=== PATIENT | female | born 1945 | race Caucasian/White ===

== ENCOUNTER 2019-05-15 23:54 | Inpatient (IN) | payer MEDICARE, BC ==
[~2019-05-15] VITALS: Ht 160 cm; Wt 104.3 kg
[2019-05-16] VITALS (10 sets, daily range): BP systolic 128–173; BP diastolic 71–93; Ht 160 cm; Wt 104.3 kg
--- NOTE | 2019-05-16 08:07 | NUR ---
PT ASSISTED TO BR. PT BEGAN VOMITTING DARK GREEN/YELLOW FLUID. PT BACK IN BED AND RESTING AT THIS TIME. CONSENTS FOR SX SIGNED. TM.
--- NOTE | 2019-05-16 08:14 | NUR ---
PT GIVEN PRN ZOFRAN AND MORPHINE AT THIS TIME.
[2019-05-16 08:23] LABS: ALBUMIN 3.4 g/dL (3.4-5.0); ALKALINE PHOSPHATASE 117 U/L (46-116); ALT (SGPT) 46 U/L (10-68); CALC OSMOLALITY 279 mosm/kg (275-300); CALCIUM 8.6 mg/dL (8.5-10.1); CARBON DIOXIDE 27.5 mmol/L (21.0-32.0); CHLORIDE - SERUM 102 mmol/L (98-107); CREATININE - SERUM 0.9 mg/dL (0.6-1.3); GLUCOSE 106 mg/dL (74-106); POTASSIUM - SERUM 3.4 mmol/L (3.5-5.1); PRO BNP 599 pg/mL (0-125); PROTEIN - SERUM 7.7 g/dL (6.4-8.2); SODIUM 140 mmol/L (136-145); THYROID STIMULATING HORMONE 0.89 uIU/mL (0.36-3.74); TROPONIN-I < 0.017 ng/mL (0.000-0.060); UREA NITROGEN 15 mg/dL (7-18); eGFR NON AFRICAN AMERICAN 65 mL/min (90-120)
[2019-05-16 08:54] LABS: BASOPHILS 0.1 % (0-2); EOSINOPHILS 0.1 % (0-7); HEMOGLOBIN 13.9 g/dL (12-16); IMMATURE GRANULOCYTES 0.2 % (0-5); LYMPHOCYTES 14.2 % (15-50); MCH 28.5 pg (26.0-34.0); MCHC 33.9 g/dL (31.0-37.0); MEAN PLATELET VOLUME 11.5 fL (7.4-10.4); MONOCYTES 5.3 % (2-11); NEUTROPHILS 80.1 % (40-80); PLATELET COUNT 261 10x3/uL (130-400); RBC 4.88 10x6/uL (4.00-5.40); RDW 13.5 % (11.5-14.5); WBC 8.7 10x3/uL (4.8-10.8)
--- NOTE | 2019-05-16 10:36 | NUR ---
PT PREOP MEDICATIONS GIVE.
--- NOTE | 2019-05-16 13:18 | NUR ---
PREPPED SHOULDER TO FINGERTIPS CIRCUMFERENTIALLY WITH HIBICLENS/ALCOHOL AND DRIED WITH TOWEL. THEN PREPPED WITH CHLORAPREP. STERILE GOWN AND GLOVES WORN DURING PREP. TRAFFIC IN AND OUT OF ROOM MONITORED AND KEPT TO A MINIMUM.
--- NOTE | 2019-05-16 16:27 | NUR ---
PT RETURNED FROM SX. POST OP VSS. PT SLEEPING. AROUSES TO VOICE. SON AT BEDSIDE. WCTM.
--- NOTE | 2019-05-16 19:30 | NUR ---
PATIENT RESTING IN BED WITH GUEST AT BEDSIDE AND NO S/S OF DISTRESS. PATIENT DENIES NEEDS AT THIS TIME. OFFERED TO ASSIST PATIENT TO THE RESTROOM AND SHE DECLINED AT THIS TIME. REMINDED THE PATIENT NOT TO TRY AND GO TO THE RESTROOM WITHOUT ASSISTANCE, PATIENT VERBALIZED UNDERSTANDING. BED IN LOWEST POSITION AND CALL LIGHT WITHIN REACH. ENCOURAGED THE PATIENT TO CALL IF SHE HAS NEEDS. WILL CONTINUE TO MONITOR.
--- NOTE | 2019-05-16 21:30 | NUR ---
PATIENT SITTING UP IN BED EATING HER DINNER. PATIENT DENIES NEEDS AT THIS TIME. WILL CONTINUE TO MONITOR.
--- NOTE | 2019-05-16 22:07 | NUR ---
ADMINISTERED MEDS PER ORDERS. PLACED PLEXI PULSE BOOTS ON PATIENT WITH NON SLIP SOCKS UNTIL I CAN OBTAIN LARGE SCD'S. GAVE PATIENT INCENTIVE SPIROMETER AND INSTRUCTED ON USE. PATIENT VERBALIZED UNDERSTANDING AND RETURNED DEMONSTRATION. APPLIED FRESH ICE PACK TO PATIENT'S RIGHT SHOULDER. PATIENT DENIES OTHER NEEDS AT THIS TIME. WILL CONTINUE TO MONITOR.
--- NOTE | 2019-05-17 00:10 | NUR ---
TOBACCO GROWER ASSISTED PATIENT TO RESTROOM, PATIENT VOIDED. TOBACCO GROWER ALSO CHANGED PATIENT'S LINENS AFTER PATIENT HAD INCONTINENT EPISODE.
[2019-05-17 01:39] VITALS: BP 119/69
--- NOTE | 2019-05-17 02:52 | NUR ---
ASSISTED PATIENT TO AND FROM RESTROOM WITH THE HOME HEALTH CLINICIAN. PATIENT VOIDED FOR THE THIRD TIME POSTOP. PATIENT C/O 10/10 PAIN. ADMINISTERED NORCO PER ORDERS. ALSO APPLIED FRESH ICE PACK.
[2019-05-17 05:30] VITALS: BP 127/70
[2019-05-17 06:54] LABS: HEMATOCRIT 36.9 % (36.0-48.0); HEMOGLOBIN 12.1 g/dL (12-16); MCHC 32.8 g/dL (31.0-37.0); MCV 85.4 fL (80.0-100.0); MEAN PLATELET VOLUME 11.7 fL (7.4-10.4); RBC 4.32 10x6/uL (4.00-5.40); RDW 14.1 % (11.5-14.5); WBC 9.6 10x3/uL (4.8-10.8)
--- NOTE | 2019-05-17 07:54 | NUR ---
ASSESSMENT COMPLETE, DR FUNK HAS ROUNDED AND DISCHARGE ORDERS OBTAINED. PT IN GOOD SPIRITS UP EATING BREAKFAST. IVF DC'D. DENIES ANYOTHER NEEDS AT THIS TIME,
[2019-05-17 08:00] VITALS: BP 140/74
--- NOTE | 2019-05-17 09:34 | NUR ---
IV TO LEFT HAND REMOVED TIP INTACT WELL IV TO LEFT CHEST WALL. PT GALO WELL.
[2019-05-17 10:17] LABS: ALBUMIN 2.9 g/dL (3.4-5.0); ANION GAP 13.4 mmol/L (8-16); BILIRUBIN - TOTAL 0.43 mg/dL (0.2-1.3); CALCIUM 7.4 mg/dL (8.5-10.1); CARBON DIOXIDE 25.9 mmol/L (21.0-32.0); POTASSIUM - SERUM 3.3 mmol/L (3.5-5.1); PROTEIN - SERUM 6.4 g/dL (6.4-8.2)
[2019-05-17 10:19] LABS: CREATININE - SERUM 1.4 mg/dL (0.6-1.3)
[2019-05-17 12:03] VITALS: BP 129/83
--- NOTE | 2019-05-17 13:00 | MORECARE ---
CASE MANAGEMENT DISCHARGE SUMMARY PATIENT: TRACY GARCIA UNIT: [id number] ADM DATE: 05/16/19 AGE: 74 : 47 SEX: F ROOM/BED: D.1204 AUTHOR: EDDY HARDING PHYSICIAN: REFERRING PHYSICIAN: JR REAVES MD DATE OF SERVICE: 05/17/19 Discharge Plan Patient Name: TRACY GARCIA Facility: [facility]:[place] : 1945 Planned Disposition: Inpatient Rehab Facility Anticipated Discharge Date: 05/18/19 Discharge Date: Expected LOS: 2 Initial Reviewer: [email or web address] Initial Review Date: 05/16/2019 Generated: 05/17/19 2:00 pm DCPIA - Discharge Planning Initial Assessment Updated by [email or web address]: Joy Noe on 05/17/19 1:00 pm * Is the patient Alert and Oriented? Yes * PCP Don't have a pcp... Info given on PCP's accepting new patients. * Pharmacy [facility] * Preadmission Environment Home Alone * ADLs Partial Dependent * Partial ADLs (Assistance needed) Ambulation Bathing Dressing Toileting Transfers * Equipment Cane * List name and contact numbers for known caregivers / representatives who currently or will assist patient after discharge: Mohinder [place] [facility] - [phone] * Verbal permission to speak to the caregivers and representatives has been obtained from the patient. Yes * Community resources currently utilized None * Additional services required to return to the preadmission environment? Yes * Can the patient safely return to the preadmission environment? No * Has this patient been hospitalized within the prior 30 days at any hospital? No Patient Name: TRACY GARCIA Page [id number] at 1300 All edits/amendments must be made on the electronic document DICTATION DATE: 05/17/19 1300 INDUSTRIAL ENGINEERING MANAGER: PLACIDO 05/17/19 1300 RPT#: [id number] DC DATE: STATUS: ADM IN [facility] [address] [place] [address] END OF REPORT
--- NOTE | 2019-05-17 13:10 | MORECARE ---
CASE MANAGEMENT DISCHARGE SUMMARY PATIENT: TRACY GARCIA UNIT: [id number] ADM DATE: 05/16/19 AGE: 74 : 47 SEX: F ROOM/BED: D.1204 AUTHOR: MEHDI,DOC PHYSICIAN: REFERRING PHYSICIAN: JR REAVES MD DATE OF SERVICE: 05/17/19 Discharge Plan Patient Name: TRACY GARCIA Facility: [facility]:[place] : 1945 Planned Disposition: Inpatient Rehab Facility Anticipated Discharge Date: 05/18/19 Discharge Date: Expected LOS: 2 Initial Reviewer: [email or web address] Initial Review Date: 05/16/2019 Generated: 05/17/19 2:09 pm Comments DCP- Discharge Planning Updated by [id number]: Joy Noe on 05/17/19 12:[address] DC PLAN: Inpatient rehab. ANTICIPATED DC NEEDS: Referred to [facility] re[facility] 05/17/2019 @ 1300. CM met with patient and her son to complete initial dc planning assessment. CM educated patient on the CM role and verbal consent given by patient to complete assessment. CM verified patient's address, phone number, and emergency contact phone numbers. Patient lives at home alone and was independent in her care prior to hospital admission. Patient now has limited use/mobility with her right shoulder for 2 weeks. She lives home alone and is de-saturating below 88% with therapy with ambulation. Physical therapy is recommending the patient go to rehab. Discussed this with the patient and her son and the patient would like IN rehab with anticipation of getting home quicker. Referral sent to [facility] rehab. Cm left a message for Clarissa regarding referral. JAZMIN form presented, explained and signed by the patient's son for 1. [facility] 2.[facility] Re[facility] 3.[facility] (if meets 3mn and if she does not qualify IN rehab) Signed form placed on patient's chart and a signed copy left with the patient for her records. CM will wait admission determination from rehab. CM will continue to follow and will assist as needed with dc plans/needs. Joy Noe RN, [facility] DCPIA - Discharge Planning Initial Assessment Updated by [email or web address]: Joy Noe on 05/17/19 1:00 pm * Is the patient Alert and Oriented? Yes * PCP Don't have a pcp... Info given on PCP's accepting new patients. * [facility] * Preadmission Environment Home Alone * ADLs Partial Dependent * Partial ADLs (Assistance needed) Ambulation Bathing Dressing Toileting Transfers * Equipment Cane * List name and contact numbers for known caregivers / representatives who currently or will assist patient after discharge: Mohinder [place] - son - [phone] * Verbal permission to speak to the caregivers and representatives has been obtained from the patient. Yes * Community resources currently utilized None * Additional services required to return to the preadmission environment? Yes * Can the patient safely return to the preadmission environment? No * Has this patient been hospitalized within the prior 30 days at any hospital? No Coverage Notice Reviewer: [email or web address] Jose Manuel Noe Notice Issued Date-Time: 05/17/2019 13:09 Notice Type: Patient Choice Letter Notice Delivered To: Patient Relationship to Patient: Son Parking Officer Name: Mohinder [place] Delivery Method: - Mallorie Days: Prior Verbal Notification: Recipient Understood Notice: Recipient Signature: Med Rec Note Co-signed by Attending: Coverage Notice Comment: Last DP export: 05/17/19 12:00 pm Patient Name: TRACY GARCIA Page [id number] at 1310 All edits/amendments must be made on the electronic document DICTATION DATE: 05/17/19 1309 ANIMAL ANATOMY TEACHER: PLACIDO 05/17/19 1309 RPT#: [id number] DC DATE: STATUS: ADM IN [facility] [address] [place] [address] END OF REPORT
--- NOTE | 2019-05-17 13:22 | OP ---
PATIENT NAME: TRACY GARCIA MEDICAL RECORD: [id number] :[birth year] LOCATION:D.M3 D.1204 ADMISSION DATE:05/16/19 SURGEON: CHRIS FUNK DO DATE OF OPERATION: 05/16/2019 PROCEDURE PERFORMED: Right reverse total shoulder arthroplasty. PREOPERATIVE DIAGNOSIS: Right proximal humerus fracture. POSTOPERATIVE DIAGNOSIS: Right proximal humerus fracture. INDICATIONS: Ms. Garcia is a 74-year-old female who fell onto her right shoulder yesterday and she has a severely comminuted proximal humerus fracture at the surgical neck and in the anatomic neck with the split up into the greater tuberosity. We got a CT, which showed that I informed her we could try an open reduction and internal fixation, but if she did have arthritis as well in the shoulder and that this would be the best procedure for her to get back to functioning as this is for dominant arm. She was okay with that and was aware of the risks including infection, bleeding, further fracture, damage to nerves and vessels, need for further surgery, blood clots, and even and she signed a consent. SURGEON: Chris Funk DO DESCRIPTION OF THE PROCEDURE: The patient received a block by anesthesia in the preoperative area and was taken to the operative suite, given 2 grams Ancef preoperatively. The right shoulder was then prepped and draped in sterile fashion. A timeout was performed and everyone was in agreement with correct side, site, patient and procedure. I was assisted by Héctor Ying surgical process assistant who helped with retraction and closing. We then went to the deltopectoral with a knife and a #10 blade scalpel. Careful dissection was made down with a Bovie at that time to the cephalic vein. The cephalic vein was loosened and taken laterally. The adhesions were broken up on the humerus under the deltoid with a Arita and then a Brown retractor was placed to retract out the deltoid and then released the proximal centimeter on the pec and then tenodesed the long head of the biceps tendon and covered by the long head of the biceps tendon and followed it up through the groove into the shoulder joint. Then, peeled off the subscapularis tendon and opened the joint and the fracture was noted as well and I then cut the head and then the glenoid was exposed. The labrum was removed and a centering pin was used for the glenosphere and it was then drilled and then impacted in the baseplate. The central screw was then put in and then 3 peripheral screws and then the glenosphere was impacted on and then 1st reamed and then broached the humerus holding the fracture manually and reduced and then we cemented in a #8 humeral fracture stem. Once cement dried, it was removed from around the soft tissue. I then trialed with a standard poly and standard tray and it fit very well, then went with a constrained poly and impacted on and reduced the shoulder. There was good tension on the conjoined tendon and did not dislocate whatsoever and no shucking either. The patient had good range of motion. There was a small bone fragment that was removed at that point and that was floating in and around in the shoulder area. There was no cement that I could see in that area. This was then irrigated out with a 10% povidone-iodine solution with 500 mL normal saline OPERATIVE REPORT [id number] TRACY GARCIA and then this after 3 minutes, irrigated out with over a liter of normal saline and then vancomycin and tobramycin powder placed in the shoulder as well as the Narendra. There is very minimal blood loss at that time. She was then closed. The deltopectoral interval was closed loosely with #1 Vicryl simple fashion and then 2-0 Vicryl in inverted interrupted fashion on the skin and 4-0 Monocryl around the skin. Prineo glue placed on it. She was then dressed with Telfa and Tegaderm. Awakened and taken to recovery in stable condition. Blood loss was approximately 200 mL. COMPLICATIONS: None. TRANSINT:[id number] Voice Confirmation ID: [id number] DOCUMENT ID: [id number] CHRIS FUNK DO at 1322 CC: [id number] DICTATION DATE: 05/16/19 1433 CORRECTIONAL GUARD: 05/16/19 2307 ADM IN [facility] [id number] [place] [address]
--- NOTE | 2019-05-17 14:30 | NUR ---
1430 IV RESTARTED WITH 22 GAUGE X 3 STICKS L HAND. IVF INFUSING @ 75CC/HR.
--- NOTE | 2019-05-17 14:30 | NUR ---
IV RESTARTED X 2 STICKS 22GUAGE L HAND. PT TOLERATED WELL. ANCEF HUNG AND NORCO GIVEN FOR SHOULDER PAIN. REHAB CASE MANAGEMENT ARRIVAL TO TALK TO PT ABOUT REHAB PROGRAM. WILL CONT TO MONITOR.
--- NOTE | 2019-05-17 14:48 | NUR ---
Rehab Prescreening Consult recieved and the patient has been visited. She meets criteria and will be accepted when she is medically stable. Discussed with the CM Joy Noe and the ZULMA Martin. Clarissa March RN Clinical Liaison, Rehab
[2019-05-17 16:17] VITALS: BP 122/76
--- NOTE | 2019-05-17 17:07 | MORECARE ---
CASE MANAGEMENT DISCHARGE SUMMARY PATIENT: TRACY GARCIA UNIT: [id number] ADM DATE: 05/16/19 AGE: 74 : 47 SEX: F ROOM/BED: D.1204 AUTHOR: MEHDI,DOC PHYSICIAN: REFERRING PHYSICIAN: JR REAVES MD DATE OF SERVICE: 05/17/19 Discharge Plan Patient Name: TRACY GARCIA Facility: [facility]:[place] : 1945 Planned Disposition: Inpatient Rehab Facility Anticipated Discharge Date: 05/18/19 Discharge Date: Expected LOS: 2 Initial Reviewer: [email or web address] Initial Review Date: 05/16/2019 Generated: 05/17/19 6:07 pm Comments DCP- Discharge Planning Updated by [email or web address]: Joy Noe on 05/17/19 4:[address] DC PLAN: Accepted to [facility] Inpatient Rehab. Received call from Clarissa with [facility] IN Rehab who stated they will accept patient when md ready for dc. Dr. Reaves on unit and stated the patient may be able to go to rehab tomorrow as long as she remains stable. Joy Noe RN, [facility] DCP- Discharge Planning Updated by [email or web address]: Joy Noe on 05/17/19 12:[address] DC PLAN: Inpatient rehab. ANTICIPATED DC NEEDS: Referred to [facility] 05/17/2019 @ 1300. CM met with patient and her son to complete initial dc planning assessment. CM educated patient on the CM role and verbal consent given by patient to complete assessment. CM verified patient's address, phone number, and emergency contact phone numbers. Patient lives at home alone and was independent in her care prior to hospital admission. Patient now has limited use/mobility with her right shoulder for 2 weeks. She lives home alone and is de-saturating below 88% with therapy with ambulation. Physical therapy is recommending the patient go to rehab. Discussed this with the patient and her son and the patient would like IN rehab with anticipation of getting home quicker. Referral sent to [facility] rehab. Cm left a message for Clarissa regarding referral. JAZMIN form presented, explained and signed by the patient's son for 1. [facility] [place] 2.[facility] Re[facility] 3.[facility] (if meets 3mn and if she does not qualify IN rehab) Signed form placed on patient's chart and a signed copy left with the patient for her records. CM will wait admission determination from rehab. CM will continue to follow and will assist as needed with dc plans/needs. Joy Noe RN, [facility] DCPIA - Discharge Planning Initial Assessment Updated by [id number]: Joy Noe on 05/17/19 1:00 pm * Is the patient Alert and Oriented? Yes * PCP Don't have a pcp... Info given on PCP's accepting new patients. * Pharmacy [facility] * Preadmission Environment Home Alone * ADLs Partial Dependent * Partial ADLs (Assistance needed) Ambulation Bathing Dressing Toileting Transfers * Equipment Cane * List name and contact numbers for known caregivers / representatives who currently or will assist patient after discharge: Mohinder [place] - [facility] - [phone] * Verbal permission to speak to the caregivers and representatives has been obtained from the patient. Yes * Community resources currently utilized None * Additional services required to return to the preadmission environment? Yes * Can the patient safely return to the preadmission environment? No * Has this patient been hospitalized within the prior 30 days at any hospital? No Coverage Notice Reviewer: [id number] - Joy Noe Notice Issued Date-Time: 05/17/2019 13:09 Notice Type: Patient Choice Letter Notice Delivered To: Patient Relationship to Patient: Son Grey Inspector Name: Mohinder [place] Delivery Method: HAND - Hand Delivered Mallorie Days: Prior Verbal Notification: Recipient Understood Notice: Yes Recipient Signature: Yes Med Rec Note Co-signed by Attending: Coverage Notice Comment: JAZMIN form presented, explained and signed by the patients son for [facility] 2.[facility] rehab 3. [facility]. Signed form placed on patient's chart and a signed copy left with the patient for her records. Last DP export: 05/17/19 12:10 pm Patient Name: TRACY GARCIA Page [id number] at 1707 All edits/amendments must be made on the electronic document DICTATION DATE: 05/17/191706 AGILE TEST LEAD: PLACIDO 05/17/191706 RPT#: [id number] DC DATE: STATUS: ADM IN [facility] [address] [place] [address] END OF REPORT
[2019-05-17 20:02] VITALS: BP 137/66
[2019-05-18 01:08] VITALS: BP 137/72
--- NOTE | 2019-05-18 01:23 | NUR ---
LYING IN BED WITH EYES OPEN. ALERT AND ORIENTED x4. NO SIGNS OR SYMPTOMS OF DISTRESS. RESPIRATION EVEN AND UNLABORED. ON 2L NC. CONTINENT OF BOWELL AND BLADDER. BOWELL SOUNDS x4 STATES LAST BOWELL MOVEMENTWAS 05/16/2019. ABDOMEN SOFT TO PALPATION. PRN PAIN MEDICATION GIVEN FOR 8/10 PAIN LEVEL. DURING REASSESSMENT PT STATES THAT PAIN LEVEL IS NOW A 2/10. UP WITH ASSIST TO RESTROOM, USES BEDPAN NEEDED. WEAK AT TIMES. SCDS ARE ON AND ACTIVE. L HAND IV RUNNING NORMAL SALINE. BED IS IN LOWEST POSITION AND CALL LIGHT IS WITHIN REACH. PT ENCOURAGED TO CALL FOR HELP WHEN GETTING IN AND OUT OF BED. WILL CONTINUE TO MONITOR.
[2019-05-18 06:05] VITALS: BP 180/91
--- NOTE | 2019-05-18 06:49 | NUR ---
I have reviewed this patient and I concur with the Shift Assessment completed by the Licensed Practical Nurse today this shift.
[2019-05-18 07:05] LABS: BASOPHILS 0.2 % (0-2); EOSINOPHILS 1.7 % (0-7); HEMATOCRIT 35.6 % (36.0-48.0); HEMOGLOBIN 11.6 g/dL (12-16); IMMATURE GRANULOCYTES 0.2 % (0-5); LYMPHOCYTES 21.1 % (15-50); MCH 27.7 pg (26.0-34.0); MCHC 32.6 g/dL (31.0-37.0); MEAN PLATELET VOLUME 11.1 fL (7.4-10.4); MONOCYTES 10.9 % (2-11); NEUTROPHILS 65.9 % (40-80); PLATELET COUNT 205 10x3/uL (130-400); RBC 4.19 10x6/uL (4.00-5.40); RDW 14.1 % (11.5-14.5)
[2019-05-18 07:23] LABS: ALBUMIN 2.6 g/dL (3.4-5.0); ANION GAP 10.2 mmol/L (8-16); BILIRUBIN - TOTAL 0.77 mg/dL (0.2-1.3); CALCIUM 7.8 mg/dL (8.5-10.1); CARBON DIOXIDE 25.7 mmol/L (21.0-32.0); CREATININE - SERUM 1.2 mg/dL (0.6-1.3); PROTEIN - SERUM 6.6 g/dL (6.4-8.2)
[2019-05-18 07:24] LABS: POTASSIUM - SERUM 2.9 mmol/L (3.5-5.1)
[2019-05-18 09:04] VITALS: BP 136/79
--- NOTE | 2019-05-18 10:26 | NUR ---
NUTRITION FOLLOW UP: INTERVIEW: Met with patient this morning. She stated that her appetite has been good today. Denied N/V/D/C. She stated that she has trouble filling out the menu and writing due to her unable to write with her right hand. Denied need for nutrition supplements. DIET: Regular Diet PO INTAKE: 68.5% avg x 2 meals WT/WT CHANGE: 230 lbs 05/16 LAST BM: No BM recorded since admit SIG MEDS: Senokot, KCk, Protonix, NaCl @ 75 ml/hr, Zofran SIG LABS: K-2.9(L), Calcium-7.8(L) GOALS: PO intake >/= 75% Stable weight DHS BM q 3 days WILL CONINTUE TO MONITOR PT DHS. CLINICAL DIETITIAN FOLLOWING
--- NOTE | 2019-05-18 10:40 | NUR ---
NUTRITION FOLLOW UP: INTERVIEW: Unable to speak with patient this am. Patient asleep. Patient had swallow study with speach therapy on 05/17. Currently no signs or symptoms of aspriration. DIET: AHA- low fat/cholesterol PO INTAKE: 22.5% avg x 6 meals WT: 196 lbs on 05/16 BM: Diarrhea x 2 on 05/17 SIG MEDS: KCl, Lasix, Imodium, Folic acid, Pepcid, Colace, Zofran SIG LABS: Calcium-7.5 (L), Phos-2.3(L), Mag-1.7(L) GOALS: PO intake >/= 65% Diarrhea Cessation Nutrition-related lab values WNL WILL CONTINUE TO MONITOR PATIENT DHS, CLINICAL DIETITIAN FOLLOWING
[2019-05-18] MEDS ORDERED: Narcan INJ IV (12:06)
[2019-05-18] MEDS ORDERED: TESSALON PERLE100 MG PO (12:06)
[2019-05-18] MEDS ORDERED: MUCINEX600 MG PO (12:06)
[2019-05-18] MEDS ORDERED: IPRAT-ALBUT 0.5-3 ML UPD (12:06)
[2019-05-18] MEDS ORDERED: LABETALOL HCL IV (12:06)
[2019-05-18] MEDS ORDERED: HYDROCODON-ACE1 EA10 PO (12:06)
[2019-05-18] MEDS ORDERED: Senokot-S Tablet PO (12:07)
[2019-05-18] MEDS ORDERED: PROTONIX40 MG PO (12:07)
[2019-05-18 12:20] VITALS: BP 162/82
--- NOTE | 2019-05-18 12:20 | MORECARE ---
CASE MANAGEMENT DISCHARGE SUMMARY PATIENT: TRACY GARCIA UNIT: [id number] ADM DATE: 05/16/19 AGE: 74 : 47 SEX: F ROOM/BED: D.1204 AUTHOR: MEHDI,DOC PHYSICIAN: REFERRING PHYSICIAN: JR REAVES MD DATE OF SERVICE: 05/18/19 Discharge Plan Patient Name: TRACY GARCIA Facility: [facility]:[place] : 1945 Planned Disposition: Inpatient Rehab Facility Anticipated Discharge Date: 05/18/19 Discharge Date: Expected LOS: 2 Initial Reviewer: [email or web address] Initial Review Date: 05/16/2019 Generated: 05/18/19 1:19 pm Comments DCP- Discharge Planning Updated by [email or web address]: Cyndi Brenner on 05/18/19 11:[address] CM notified the patient she had been accepted to rehab and a bed had been assigned. CM discussed Discharge IMM. Patient had no questions. Voiced no concerns. Patient signature obtained on two copies. One original to the patient. One original to the hard cover chart. Patient c/o pain with coughing. She states she was medicated earlier today. She would like pain medication if she can have it. CM advised her primary nurse, Shireen, as she was walking thru the door. DCP- Discharge Planning Updated by [email or web address]: Joy Noe on 05/17/19 4:[address] DC PLAN: Accepted to [facility] Inpatient Rehab. Received call from Clarissa with [facility] IN Rehab who stated they will accept patient when md ready for dc. Dr. Reaves on unit and stated the patient may be able to go to rehab tomorrow as long as she remains stable. Joy Neo RN, [facility] DCP- Discharge Planning Updated by [id number]: Joy Noe on 05/17/19 12:[address] DC PLAN: Inpatient rehab. ANTICIPATED DC NEEDS: Referred to [facility] 05/17/2019 @ 1300. CM met with patient and her son to complete initial dc planning assessment. CM educated patient on the CM role and verbal consent given by patient to complete assessment. CM verified patient's address, phone number, and emergency contact phone numbers. Patient lives at home alone and was independent in her care prior to hospital admission. Patient now has limited use/mobility with her right shoulder for 2 weeks. She lives home alone and is de-saturating below 88% with therapy with ambulation. Physical therapy is recommending the patient go to rehab. Discussed this with the patient and her son and the patient would like IN rehab with anticipation of getting home quicker. Referral sent to [facility]. Cm left a message for Clarissa regarding referral. JAZMIN form presented, explained and signed by the patient's son for 1. [facility] 2.[facility] 3.[facility] (if meets 3mn and if she does not qualify IN rehab) Signed form placed on patient's chart and a signed copy left with the patient for her records. CM will wait admission determination from rehab. CM will continue to follow and will assist as needed with dc plans/needs. Joy Noe RN, [facility] DCPIA - Discharge Planning Initial Assessment Updated by [email or web address]: Joy Noe on 05/17/19 1:00 pm * Is the patient Alert and Oriented? Yes * PCP Don't have a pcp... Info given on PCP's accepting new patients. * Pharmacy [facility] * Preadmission Environment Home Alone * ADLs Partial Dependent * Partial ADLs (Assistance needed) Ambulation Bathing Dressing Toileting Transfers * Equipment Cane * List name and contact numbers for known caregivers / representatives who currently or will assist patient after discharge: Mohinder Rice - aura - [phone] * Verbal permission to speak to the caregivers and representatives has been obtained from the patient. Yes * Community resources currently utilized None * Additional services required to return to the preadmission environment? Yes * Can the patient safely return to the preadmission environment? No * Has this patient been hospitalized within the prior 30 days at any hospital? No Coverage Notice Reviewer: [id number] - Joy Noe Notice Issued Date-Time: 05/17/2019 13:09 Notice Type: Patient Choice Letter Notice Delivered To: Patient Relationship to Patient: Son Punchboard Assembler Name: Mohinder Rice Delivery Method: HAND - Hand Delivered Mallorie Days: Prior Verbal Notification: Recipient Understood Notice: Yes Recipient Signature: Yes Med Rec Note Co-signed by Attending: Coverage Notice Comment: JAZMIN form presented, explained and signed by the patients son for 1.[facility] 3. [facility]. Signed form placed on patient's chart and a signed copy left with the patient for her records. Reviewer: [id number] Jose Manuel Brenner Notice Issued Date-Time: 05/18/2019 12:17 Notice Type: IM Discharge Notice Notice Delivered To: Patient Relationship to Patient: Self Punchboard Assembler Name: Delivery Method: - Mallorie Days: Prior Verbal Notification: Recipient Understood Notice: Recipient Signature: Med Rec Note Co-signed by Attending: Coverage Notice Comment: Last DP export: 05/17/19 4:07 pm Patient Name: TRACY GARCIA Page [id number] at 1220 All edits/amendments must be made on the electronic document DICTATION DATE: 05/18/191218 MANAGER ANDROID: PLACIDO 05/18/191218 RPT#: [id number] DC DATE: STATUS: ADM IN [facility] [address] [place] [address] END OF REPORT
[2019-05-18 16:00] VITALS: BP 166/82
--- NOTE | 2019-05-18 16:05 | NUR ---
I have reviewed this patient and I concur with the Shift Assessment completed by the Licensed Practical Nurse today this shift.
--- NOTE | 2019-05-18 17:15 | NUR ---
PT DISCHARGED TO REHAB VIA WHEELCHAIR REPORT CALLED TO [facility] PT [facility]ATED [facility]
--- NOTE | 2019-05-20 12:42 | MORECARE ---
CASE MANAGEMENT DISCHARGE SUMMARY PATIENT: TRACY GARCIA UNIT: [id number] ADM DATE: 05/16/19 AGE: 74 : 47 SEX: F ROOM/BED: D.1204 AUTHOR: MEHDI,DOC PHYSICIAN: REFERRING PHYSICIAN: JR REAVES MD DATE OF SERVICE: 05/20/19 Discharge Plan Patient Name: TRACY GARCIA Facility: [facility]:[place] : 1945 Planned Disposition: Inpatient Rehab Facility Anticipated Discharge Date: 05/18/19 Discharge Date: 05/18/2019 Expected LOS: 2 Initial Reviewer: [email or web address] Initial Review Date: 05/16/2019 Generated: 05/20/19 1:41 pm Comments DCP- Discharge Planning Updated by [email or web address]: Cyndi Brenner on 05/18/19 11:[address] CM notified the patient she had been accepted to rehab and a bed had been assigned. CM discussed Discharge IMM. Patient had no questions. Voiced no concerns. Patient signature obtained on two copies. One original to the patient. One original to the hard cover chart. Patient c/o pain with coughing. She states she was medicated earlier today. She would like pain medication if she can have it. CM advised her primary nurse, Shireen, as she was walking thru the door. DCP- Discharge Planning Updated by [id number]: Joy Noe on 05/17/19 4:[address] DC PLAN: Accepted to [facility] Inpatient Rehab. Received call from Clarissa with [facility] IN Rehab who stated they will accept patient when md ready for dc. Dr. Reaves on unit and stated the patient may be able to go to rehab tomorrow as long as she remains stable. Joy Noe RN, [facility] DCP- Discharge Planning Updated by [id number]: Joy Noe on 05/17/19 12:[address] DC PLAN: Inpatient rehab. ANTICIPATED DC NEEDS: Referred to [facility] 05/17/2019 @ 1300. CM met with patient and her son to complete initial dc planning assessment. CM educated patient on the CM role and verbal consent given by patient to complete assessment. CM verified patient's address, phone number, and emergency contact phone numbers. Patient lives at home alone and was independent in her care prior to hospital admission. Patient now has limited use/mobility with her right shoulder for 2 weeks. She lives home alone and is de-saturating below 88% with therapy with ambulation. Physical therapy is recommending the patient go to rehab. Discussed this with the patient and her son and the patient would like IN rehab with anticipation of getting home quicker. Referral sent to [facility]. Cm left a message for Clarissa regarding referral. JAZMIN form presented, explained and signed by the patient's son for 1. [facility] 2.[facility] 3.[facility] (if meets 3mn and if she does not qualify IN rehab) Signed form placed on patient's chart and a signed copy left with the patient for her records. CM will wait admission determination from rehab. CM will continue to follow and will assist as needed with dc plans/needs. Joy Noe RN, [facility] DCPIA - Discharge Planning Initial Assessment Updated by [email or web address]: Joy Noe on 05/17/19 1:00 pm * Is the patient Alert and Oriented? Yes * PCP Don't have a pcp... Info given on PCP's accepting new patients. * Pharmacy [facility] * Preadmission Environment Home Alone * ADLs Partial Dependent * Partial ADLs (Assistance needed) Ambulation Bathing Dressing Toileting Transfers * Equipment Cane * List name and contact numbers for known caregivers / representatives who currently or will assist patient after discharge: Mohinder Rice - [facility] - [phone] * Verbal permission to speak to the caregivers and representatives has been obtained from the patient. Yes * Community resources currently utilized None * Additional services required to return to the preadmission environment? Yes * Can the patient safely return to the preadmission environment? No * Has this patient been hospitalized within the prior 30 days at any hospital? No Coverage Notice Reviewer: [id number] - Joy Noe Notice Issued Date-Time: 05/17/2019 13:09 Notice Type: Patient Choice Letter Notice Delivered To: Patient Relationship to Patient: Son Ship Officer Name: Mohinder Rice Delivery Method: HAND - Hand Delivered Mallorie Days: Prior Verbal Notification: Recipient Understood Notice: Yes Recipient Signature: Yes Med Rec Note Co-signed by Attending: Coverage Notice Comment: JAZMIN form presented, explained and signed by the patients son for 1.[facility] 2.[facility] 3. [facility]. Signed form placed on patient's chart and a signed copy left with the patient for her records. Reviewer: [id number] Jose Manuel Brenner Notice Issued Date-Time: 05/18/2019 12:17 Notice Type: IM Discharge Notice Notice Delivered To: Patient Relationship to Patient: Self Ship Officer Name: Delivery Method: HAND - Hand Delivered Mallorie Days: Prior Verbal Notification: Recipient Understood Notice: Yes Recipient Signature: Yes Med Rec Note Co-signed by Attending: Coverage Notice Comment: Discharge IMM served. CM explained the notice. Patient had no questions. Voiced no concerns. Signature obtained on two copies . One to the patient. One to the hard cover chart. Last DP export: 05/18/19 11:20 a Patient Name: TRACY GARCIA Page [id number] at 1242 All edits/amendments must be made on the electronic document DICTATION DATE: 05/20/19 1241 LAPPING MACHINE TENDER: PLACIDO 05/20/19 1241 RPT#: [id number] DC DATE:05/18/19 STATUS: DIS IN [facility] [address] [place] [address] END OF REPORT
== END 2019-05-18 18:03 | DRG 483 ==
LOC: D.ER 23:54 → D.M3 05-16 01:32
PROVIDERS: Family Medicine; Orthopaedic Surgery; ADMIT Family Medicine; ATTEND Family Medicine
PROC: 0RRJ00Z Replacement of Right Shoulder Joint with Reverse Ball and Socket Synthetic Substitute, Open Approach (ICD-10-PCS; principal; 2019-05-16 10:30)
DX: S42.201A Unspecified fracture of upper end of right humerus, initial encounter for closed fracture (principal); W19.XXXA Unspecified fall, initial encounter

== ENCOUNTER 2019-05-18 17:11 | Inpatient (IN) | payer MEDICARE, BC ==
[~2019-05-18] VITALS: Ht 160 cm; Wt 113.4 kg
[~2019-05-18 17:11] MED LIST: HYDROCODON-ACE1 EA10 PO; IPRAT-ALBUT 0.5-3 ML UPD; LABETALOL HCL IV; MUCINEX600 MG PO; Narcan INJ IV; PROTONIX40 MG PO; Senokot-S Tablet PO; TESSALON PERLE100 MG PO
[2019-05-18 17:28] VITALS: BP 176/86; BMI 44.3
--- NOTE | 2019-05-18 18:07 | NUR ---
ADMIT TO REHAB FROM ACUTE CARE FLOOR. SHE IS ALERT AND ORIENTED X4. SLOW TO ANSWER QUESTIONS. SHE HAS A SLING FOR HER RUE BUT HER ARM IS HANGING OUT OF IT MOSTLY. SHE DECLINED TO CORRECT ANGLE OF ARM. DRY DSG WITH OP-SITE NOTED TO ANTERIOR SHOULDER. NO S/S INFECTION NOTED. RADIAL PULSES PRESENT X2. BOTH FEET HAVE 2-3+ EDEMA IN THEM. WHEN NURSE ASKED PT IF HER FEET WERE ALWAYS SWOLLEN, PT ANSWERED "I GUESS SO, THAT'S PROBALLY WHY MY SHOES ARE TIGHT".........
--- NOTE | 2019-05-18 19:19 | NUR ---
AWAKE AND ALERT. RESTING IN BED WITH RESPIRATIONS UNLABORED. RIGHT ARM IN SLING. NO ACUTE DISTRESS NOTED. STATED SHE FORGOT PURSE ON MED 3. I RETRIEVED HER PURSE AND PUT IN IN HER BEDSIDE TABLE. NO ACUTE DISTRESS NOTED. CALL LIGHT IN REACH.
[2019-05-18 20:34] VITALS: BP 174/89
--- NOTE | 2019-05-19 00:31 | NUR ---
RESTING IN BED. ASSISTED TO AMBULATE TO BATHROOM AN HOUR AGO AND AMBULATED WITH STEADY GAIT. RESPIRATIONS UNLABORED. NO DISTRESS NOTED.
--- NOTE | 2019-05-19 03:14 | NUR ---
CONTINUES SLEEPING WITH RESPIRATIONS UNLABORED. SLING ON. NO DISTRESS NOTED.
--- NOTE | 2019-05-19 05:34 | NUR ---
QUIET HOURS. NO ACUTE CHANGES IN CONDITION THIS SHIFT. RESTING IN BED WITH RESPIRATIONS UNLABORED. SLING TO RIGHT ARM BUT NOT PROPERLY AND PATIENT WILL NOT ALLOW STAFF TO ADJUST ARM IN SLING. CONSULTED WITH PT TO WORK WITH HER ON THIS.
[2019-05-19 07:19] LABS: BASOPHILS 0.4 % (0-2); EOSINOPHILS 4.5 % (0-7); HEMATOCRIT 35.7 % (36.0-48.0); HEMOGLOBIN 11.8 g/dL (12-16); IMMATURE GRANULOCYTES 0.3 % (0-5); LYMPHOCYTES 21.6 % (15-50); MCHC 33.1 g/dL (31.0-37.0); MCV 84.8 fL (80.0-100.0); MEAN PLATELET VOLUME 11.1 fL (7.4-10.4); NEUTROPHILS 63.2 % (40-80); PLATELET COUNT 205 10x3/uL (130-400); RBC 4.21 10x6/uL (4.00-5.40); RDW 14.2 % (11.5-14.5); WBC 7.3 10x3/uL (4.8-10.8)
[2019-05-19 07:37] LABS: ANION GAP 11.5 mmol/L (8-16); CALCIUM 7.9 mg/dL (8.5-10.1); CARBON DIOXIDE 26.6 mmol/L (21.0-32.0); POTASSIUM - SERUM 3.1 mmol/L (3.5-5.1)
--- NOTE | 2019-05-19 08:15 | NUR ---
PT UP WITH PT IN ROOM EATING BREAKFAST CALL LIGHT IN REACH WILL MONITER
[2019-05-19 09:18] VITALS: Ht 160 cm; Wt 113.4 kg
--- NOTE | 2019-05-19 16:57 | NUR ---
I have reviewed this patient and I concur with the Shift Assessment completed by the Licensed Practical Nurse today this shift.
[2019-05-19 18:36] VITALS: BP 150/97
--- NOTE | 2019-05-19 19:13 | NUR ---
GREETED PATIENT AND INTRODUCED MYSELF HER NURSE. ASSISTED PATIENT TO BATHROOM USING ONE PERSON ASSIST. BACK TO BED AND REPOSITIONED FOR COMFORT. CALL LIGHT IN REACH.
[2019-05-19 19:45] VITALS: BP 164/89
--- NOTE | 2019-05-19 22:23 | NUR ---
PT. RESTING QUIETLY WITH EYES CLOSED. RESPIRATIONS EVEN. NO S/S OF DISTRESS. CALL LIGHT IN REACH.
--- NOTE | 2019-05-20 01:02 | NUR ---
DC PERIPHERAL IV IN LEFT HAND.
--- NOTE | 2019-05-20 01:44 | NUR ---
ASSISTED PT. TO BATHROOM USING ONE PERSON ASSIST. BACK TO BED AND REPOSITIONED FOR COMFORT. CALL LIGHT IN REACH. DENIES ANY FURTHER NEEDS.
--- NOTE | 2019-05-20 08:00 | NUR ---
PATIENT SITTING UP IN BED TO EAT BREAKFAST. PATIENT IS ALERT/ORIENT. BED ALARM ON. CALL LIGHT WITHIN REACH. VOICES NO NEEDS AT THIS TIME. WILL CONTINUE WITH PLAN OF CARE
[2019-05-20 08:15] VITALS: BP 168/81
--- NOTE | 2019-05-20 10:10 | NUR ---
PATIENT HELPED INTO BATHROOM. MOD ASST OF ONE FROM BED TO WHEELCHAIR DUE TO RIGHT HUMERUS FX. SLING ON RIGHT ARM. PATIENT DENIES ANY PAIN/DISC AT THIS TIME
--- NOTE | 2019-05-20 12:52 | NUR ---
I have reviewed this patient and I concur with the Shift Assessment completed by the Licensed Practical Nurse today this shift.
--- NOTE | 2019-05-20 13:00 | NUR ---
DR Maggy HANSON INTO SEE PATIENT. NEW ORDER RECEIVED.
--- NOTE | 2019-05-20 17:25 | NUR ---
PATIENT RESTING IN BED. TALKING ON PHONE WITH SON.
--- NOTE | 2019-05-20 19:10 | NUR ---
GREETED PATIENT AND INTRODUCED MYSELF HER NURSE. RESPIRATIONS EVEN. NO S/S OF DISTRESS. STATES THAT PAIN IS 5/10 IN RIGHT SHOULDER. AOX4. DENIES ANY FURTHER NEEDS AT THIS TIME. CALL LIGHT IN REACH.
[2019-05-20 19:30] VITALS: BP 178/87
--- NOTE | 2019-05-20 23:27 | NUR ---
PT. RESTING QUIETLY WITH EYES CLOSED. RESPIRATIONS EVEN. NO S/S OF DISTRESS. CALL LIGHT IN REACH.
[2019-05-21 07:13] LABS: BASOPHILS 0.7 % (0-2); EOSINOPHILS 5.9 % (0-7); HEMATOCRIT 36.9 % (36.0-48.0); HEMOGLOBIN 11.8 g/dL (12-16); IMMATURE GRANULOCYTES 0.3 % (0-5); LYMPHOCYTES 19.7 % (15-50); MCH 27.4 pg (26.0-34.0); MCV 85.8 fL (80.0-100.0); MEAN PLATELET VOLUME 10.5 fL (7.4-10.4); MONOCYTES 9.2 % (2-11); NEUTROPHILS 64.2 % (40-80); PLATELET COUNT 193 10x3/uL (130-400); RDW 14.1 % (11.5-14.5); WBC 7.4 10x3/uL (4.8-10.8)
[2019-05-21 07:20] LABS: ANION GAP 12.3 mmol/L (8-16); CARBON DIOXIDE 27.4 mmol/L (21.0-32.0); CREATININE - SERUM 1.1 mg/dL (0.6-1.3); POTASSIUM - SERUM 3.7 mmol/L (3.5-5.1)
--- NOTE | 2019-05-21 16:04 | NUR ---
PATIENT ADMITTED TO REHAB FROM ACUTE FLOOR. AT THIS TIME SHE HAS NO PCP, LIST GIVEN TO PATIENT OF PHYSICIANS THAT IS ACCEPTING NEW PATIENT. DME AT HOME IS A [facility]. DISCHARGE PLANS ARE FOR HER TO RETURN HOME WITH FAMILY. WILL CONTINUE TO FOLLOW WITH PATIENT.
[2019-05-21 18:42] VITALS: BP 160/84
[2019-05-21 19:00] VITALS: BP 162/100
--- NOTE | 2019-05-21 19:00 | NUR ---
BEDSIDE REPORT COMPLETE. PT LYING IN BED WATCHING TV. DENIES ANY NEEDS. C/O MILD RIGHT SHOULDER DISCOMFORT. LOWER PART OF INCISION NOTED TO BE SLIGHTLY REDDENED AND WARM TO TOUCH. PT DESCRIBES THE AREA TO BE MORE TENDER THAN THE REST. +1 EDEMA TO RIGHT HAND. +2 EDEMA TO BLE. VS STABLE. SHIFT ASSESSMENT COMPLETE. CL IN REACH. FALL PRECAUTIONS IN PLACE. WILL CONTINUE TO MONITOR
--- NOTE | 2019-05-22 00:39 | NUR ---
QUIET HOURS. PT LYING IN BED EYES CLOSED RESTING COMFORTABLY. RR EVEN AND UNLABORED. CL IN REACH
--- NOTE | 2019-05-22 04:09 | NUR ---
PT LYING IN BED EYES CLOSED RESTING COMFORTABLY. RR EVEN AND UNLABORED. CL IN REACH
--- NOTE | 2019-05-22 06:22 | NUR ---
ASSISTED TO RESTROOM WITH MIN ASSIST. DENIES ANY OTHER NEEDS AT THIS TIME.
--- NOTE | 2019-05-22 07:01 | NUR ---
GREETED PATIENT INTRODUCED MYSELF HER NURSE. PT. IS LAYING IN BED RESTING WITH SLING ON RIGHT ARM. RESPIRATIONS EVEN. NO S/S OF DISTRESS. STATES PAIN IN RT SHOULDER IS 3/10 AT THIS TIME. DENIES ANY NEEDS AT THIS TIME. CALL LIGHT IN REACH.
[2019-05-22 08:18] VITALS: BP 141/95
--- NOTE | 2019-05-22 08:59 | NUR ---
PT. IN THERAPY AT THIS TIME.
--- NOTE | 2019-05-22 12:23 | NUR ---
PT BACK TO ROOM FROM THERAPY. PT SITTING IN WHEELCHAIR. CALL LIGHT IN REACH.
--- NOTE | 2019-05-22 13:31 | NUR ---
ASSISTED PATIENT BACK TO BED AND REPOSITIONED FOR COMFORT. CALL LIGHT IN REACH.
--- NOTE | 2019-05-22 14:37 | NUR ---
Nutrition Follow-up: Diet: Regular + Ensure with meals PO intake: 100% x all meals. Reports good appetite. She is drinking Ensure but I explained to her that she does not need the Ensure if she is eating well. Explained that drinking the Ensure in addition to eating 100% of her meals may cause her to gain weight. She is agreeable to discontinuing Ensure for now. Last BM: 05/20/19. WT: 250# (05/19/19) Labs, meds, and skin assessment reviewed. Recommend continue current diet. Will discontinue Ensure. RD following.
--- NOTE | 2019-05-22 15:49 | NUR ---
PT. RESTING QUIETLY WITH EYES CLOSED. RESPIRATIONS EVENL. NO S/S OF DISTRESS. CALL LIGHT IN REACH.
--- NOTE | 2019-05-22 18:33 | NUR ---
PT. RESTING QUIETLY IN BED FINISHING HER DINNER. DENIES ANY NEEDS AT THIS TIME. CALL LIGHT IN REACH.
--- NOTE | 2019-05-22 19:10 | NUR ---
BEDSIDE REPORT COMPLETE. PT SITTING UP IN BED WATCHING BASKETBALL. DENIES ANY NEEDS OR PAIN. RR EVEN AND UNLABORED. VS STABLE. SHIFT ASSESSMENT COMPLETE. CL IN REACH. FALL PRECAUTIONS IN PLACE. WILL CONTINUE TO MONITOR
[2019-05-22 19:49] VITALS: BP 142/98
--- NOTE | 2019-05-23 00:33 | NUR ---
QUIET HOURS. PT LYING IN BED EYES CLOSED RESTING QUIETLY. RR EVEN AND UNLABORED. CL IN REACH
--- NOTE | 2019-05-23 05:06 | NUR ---
PT LYING IN BED EYES CLOSED RESTING. RR EVEN AND UNLABORED. CL IN REACH
[2019-05-23 07:47] LABS: BASOPHILS 0.6 % (0-2); EOSINOPHILS 4.7 % (0-7); HEMATOCRIT 35.3 % (36.0-48.0); HEMOGLOBIN 11.4 g/dL (12-16); IMMATURE GRANULOCYTES 0.3 % (0-5); LYMPHOCYTES 19.2 % (15-50); MCH 27.4 pg (26.0-34.0); MCHC 32.3 g/dL (31.0-37.0); MCV 84.9 fL (80.0-100.0); MEAN PLATELET VOLUME 10.4 fL (7.4-10.4); MONOCYTES 11.8 % (2-11); NEUTROPHILS 63.4 % (40-80); PLATELET COUNT 169 10x3/uL (130-400); RBC 4.16 10x6/uL (4.00-5.40); RDW 14.2 % (11.5-14.5)
[2019-05-23 08:00] VITALS: BP 146/80
--- NOTE | 2019-05-23 19:21 | NUR ---
GREETED PATIENT AND INTRODUCED MYSELF HER NURSE. PATIENT IS LAYING IN BED WATCHING TV AT THIS TIME. RESPIRATIONS EVEN. NO S/S DISTRESS. DENIES ANY NEEDS AT THIS TIME. CALL LIGHT IN REACH.
--- NOTE | 2019-05-24 02:06 | NUR ---
PT. RESTING QUIETLY WITH EYES CLOSED. RESPIRATIONS EVEN. NO S/S OF DISTRESS. SR UP X 2. BED IN LOWEST POSITION. CALL LIGHT IN REACH.
--- NOTE | 2019-05-24 07:30 | NUR ---
A/A/OX4. DENIES ANY PAIN OR DISCOMFORT AT PRESENT TIME AND VOICES NO REQUESTS. INCISION TO RIGHT SHOULDER C/D/I. RIGHT ARM PLACED IN SLING. ASSESSMENT COMPLETED AND WILL CONTINUE POC. CALL LIGHT IN REACH AND BED ALARM IS OPERATING PROPERLY.
[2019-05-24 08:09] VITALS: BP 172/85
--- NOTE | 2019-05-24 11:50 | NUR ---
I have reviewed this patient and I concur with the Shift Assessment completed by the Licensed Practical Nurse today this shift.
--- NOTE | 2019-05-24 18:36 | NUR ---
SAT UP IN BEDSIDE CHAIR FOR EVENING MEAL AND NOW RESTING QUIETLY BACK IN BED. DENIES ANY NEEDS. SLING IN PLACE TO LEFT ARM AND ELEVATED ON PILLOW FOR COMOFORT.
--- NOTE | 2019-05-24 18:55 | NUR ---
GREETED PATIENT AND INTRODUCED MYSELF HER NURSE. PATIENT IS LAYING IN BED RESTING AT THIS TIME. RESPIRAITONS EVEN. NO S/S OF DISTRESS. DENIES ANY NEEDS AT THIS TIME. CALL LIGHT IN REACH.
--- NOTE | 2019-05-24 18:55 | NUR ---
GREETED PATIENT AND INTRODUCED MYSELF HER NURSE. PATIENT IS LAYING IN BED RESTING AT THIS TIME. RESPIRATIONS EVEN. NO S/S OF DISTRESS. DENIES ANY NEEDS AT THIS TIME. CALL LIGHT IN REACH.
[2019-05-24 19:30] VITALS: BP 174/89
--- NOTE | 2019-05-25 01:33 | NUR ---
PT. RESTING QUIETLY WITH EYES OPEN AT THIS TIME. RESPIRATIONS EVEN. NO S/S OF DISTRESS. DENIES ANY NEEDS AT THIS TIME. CALL LIGHT IN REACH.
[2019-05-25 08:00] LABS: BASOPHILS 0.3 % (0-2); EOSINOPHILS 4.4 % (0-7); HEMATOCRIT 35.6 % (36.0-48.0); HEMOGLOBIN 11.4 g/dL (12-16); IMMATURE GRANULOCYTES 0.3 % (0-5); LYMPHOCYTES 23.8 % (15-50); MCH 27.9 pg (26.0-34.0); MEAN PLATELET VOLUME 10.4 fL (7.4-10.4); MONOCYTES 10.4 % (2-11); NEUTROPHILS 60.8 % (40-80); PLATELET COUNT 187 10x3/uL (130-400); RBC 4.09 10x6/uL (4.00-5.40); RDW 14.4 % (11.5-14.5); WBC 7.1 10x3/uL (4.8-10.8)
--- NOTE | 2019-05-25 08:00 | NUR ---
PT RESTING IN BED WITH EYES OPEN CALL LIGHT IN REACH WILL MONITER
[2019-05-25 08:14] LABS: ANION GAP 10.7 mmol/L (8-16); CALCIUM 8.3 mg/dL (8.5-10.1); CARBON DIOXIDE 27.6 mmol/L (21.0-32.0); POTASSIUM - SERUM 4.3 mmol/L (3.5-5.1)
[2019-05-25 08:21] VITALS: BP 178/91
--- NOTE | 2019-05-25 16:59 | NUR ---
PT RESTING IN BED WATCHING TV WILL MONITER
[2019-05-25 19:07] VITALS: BP 171/87
--- NOTE | 2019-05-25 19:07 | NUR ---
PT RECEIVED BEDSIDE REPORT COMPLETE. PT LYING IN BED WATCHING TV. DENIES ANY NEEDS OR PAIN. A & O X4. NO SIGNS OF ACUTE DISTRESS NOTED. RIGHT SHOULDER IN SLING. INCISION SITE WNL. BLE EDEMA +2. VS STABLE. SHIFT ASSESSMENT COMPLETE. CL IN REACH. FALL PRECAUTIONS IN PLACE. WILL CONTINUE TO MONITOR
--- NOTE | 2019-05-26 01:41 | NUR ---
PT LYING IN BED EYES CLOSED RESTING COMFORTABLY. RR EVEN AND UNLABORED. CL IN REACH
--- NOTE | 2019-05-26 04:54 | NUR ---
PT LYING IN BED EYES CLOSED RESTING QUIETLY. RR EVEN AND UNLABORED. CL IN REACH
[2019-05-26 08:23] VITALS: BP 161/60
--- NOTE | 2019-05-26 14:42 | NUR ---
PT RESTING IN BED WITH EYES OPEN CALL LIGHT IN REACH WILL MONITER
[2019-05-26 19:10] VITALS: BP 180/98
--- NOTE | 2019-05-26 19:10 | NUR ---
PT RECEIVED BEDSIDE REPORT COMPLETE. PT LYING IN BED EYES CLOSED RESTING. EASILY AROUSED WITH VERBAL STIMULI. DENIES ANY NEEDS OR PAIN. NO SIGNS OF ACUTE DISTRESS NOTED. VS STABLE. SHIFT ASSESSMENT COMPLETE. CL IN REACH. FALL PRECAUTIONS IN PLACE. WILL CONTINUE TO MONITOR
--- NOTE | 2019-05-26 23:27 | NUR ---
PT LYING IN BED EYES CLOSED RESTING COMFORTABLY. RR EVEN AND UNLABORED. CL IN REACH
--- NOTE | 2019-05-27 02:39 | NUR ---
PT LYING IN BED EYES CLOSED RESTING COMFORTABLY. RR EVEN AND UNLABORED. CL IN REACH
--- NOTE | 2019-05-27 06:03 | NUR ---
ASSISTED PT TO RESTROOM AND BACK TO BED WITH SBA. MIN ASSIST GETTING IN AND OUT OF BED. DENIES ANY OTHER NEEDS OR PAIN. CL IN REACH
[2019-05-27 07:38] VITALS: BP 188/96
--- NOTE | 2019-05-27 09:34 | NUR ---
PATIENT IS ALERT/ORIENT. CALL LIGHT WITHIN REACH. VOICES NO NEEDS AT THIS TIME. WILL CONTINUE WITH PLAN OF CARE
--- NOTE | 2019-05-27 15:27 | NUR ---
SHOWER GIVEN WITH HELP FROM NURSE ASST. SLING TO RIGHT ARM OFF WHILE PATIENT IN BED
[2019-05-27 18:26] VITALS: BP 172/75
--- NOTE | 2019-05-27 19:00 | NUR ---
BEDSIDE REPORT COMPLETE. PT RECEIVED LYING IN SUPINE EYES CLOSED RESTING COMFORTABLY. HOB 30 DEGREES. EASILY AROUSED WITH VERBAL STIMULI. DENIES ANY NEEDS OR PAIN. NO SIGNS OF ACUTE DISTRESS NOTED. VS STABLE. SHIFT ASSESSMENT COMPLETE. CL IN REACH. FALL PRECAUTIONS IN PLACE. WILL CONTINUE TO MONITOR
--- NOTE | 2019-05-27 23:15 | NUR ---
PT LYING IN BED EYES CLOSED RESTING COMFORTABLY. RR EVEN AND UNLABORED. CL IN REACH
--- NOTE | 2019-05-28 02:34 | NUR ---
PT LYING IN BED EYES CLOSED RESTING COMFORTABLY. CL IN REACH
--- NOTE | 2019-05-28 05:57 | NUR ---
PT LYING IN BED EYES CLOSED RESTING COMFORTABLY. RR EVEN AND UNLABORED. CL IN REACH
[2019-05-28 06:00] LABS: BASOPHILS 0.4 % (0-2); EOSINOPHILS 4.9 % (0-7); HEMATOCRIT 34.5 % (36.0-48.0); HEMOGLOBIN 10.9 g/dL (12-16); IMMATURE GRANULOCYTES 0.1 % (0-5); LYMPHOCYTES 23.1 % (15-50); MCH 27.3 pg (26.0-34.0); MCHC 31.6 g/dL (31.0-37.0); MCV 86.5 fL (80.0-100.0); MEAN PLATELET VOLUME 10.6 fL (7.4-10.4); MONOCYTES 7.8 % (2-11); NEUTROPHILS 63.7 % (40-80); RBC 3.99 10x6/uL (4.00-5.40); RDW 14.1 % (11.5-14.5); WBC 6.7 10x3/uL (4.8-10.8)
[2019-05-28 06:13] LABS: ANION GAP 13.2 mmol/L (8-16); CALCIUM 8.1 mg/dL (8.5-10.1); CARBON DIOXIDE 25.3 mmol/L (21.0-32.0); CREATININE - SERUM 0.9 mg/dL (0.6-1.3); POTASSIUM - SERUM 4.5 mmol/L (3.5-5.1)
[2019-05-28 06:43] LABS: PLATELET COUNT 226 10x3/uL (130-400)
[2019-05-28 07:58] VITALS: BP 193/100
--- NOTE | 2019-05-28 08:00 | NUR ---
PATIENT SITTING UP IN BED. ALERT/ORIENT. CALL LIGHT WITHIN REACH. VOICES NO NEEDS AT THIS TIME. WILL CONTINUE WITH PLAN OF CARE.
--- NOTE | 2019-05-28 10:30 | NUR ---
DR Maggy HANSON INTO SEE PATIENT. NEW ORDERS RECIEVED.
--- NOTE | 2019-05-28 13:21 | RHP ---
PATIENT: TRACY GARCIA MEDICAL RECORD: [id number] ACCOUNT: [id number] LOCATION:[facility]1112 : 47 ADMISSION DATE: 05/18/19 REHABILITATION HISTORY AND PHYSICAL EXAMINATION POST ADMISSION PHYSICIAN EXAMINATION ADMITTING DIAGNOSIS: Displaced comminuted proximal humeral fracture. HISTORY OF PRESENT ILLNESS: The patient is a 74-year-old female patient who presented to ED by ambulance in some moderate distress secondary to pain from her right shoulder after a fall. She has been in a C-collar, placed by paramedics. She apparently fell injuring her right shoulder, did not hit her head. Denied any other injuries. She was examined, had noted soft tissue swelling and pain to palpation. The patient had an x-ray done of this and it showed apparent fracture and displacement. The patient had a CT of her cervical spine also that did not show any signs of anything acute. She was seen and evaluated by ortho. She was admitted for pain control and placed in a sling. On 05/16/2019, she went to the OR for a right reverse total shoulder arthroplasty. Postop period has been complicated by pain, hypokalemia, hypoxia, need for O2, elevated temperature and hypertension. The patient also had to be treated with IV labetalol. Previously, she was living alone, was independent with her ADLs and mobility. She still drives and does her own care. Currently, she is set up for mod to max assist for ADLs and mobility. She is on a no lifting restrictions with the right arm. She has got poor balance and is having problems ambulating. She would like to be able to return home at her prior level of functioning. COMORBIDITIES: Include hypoxia, hypokalemia, morbid obesity, chronic cough, degenerative disc disease, old right frontal lobe infarct, cervical spasms, contusion, right shoulder fracture, dislocation. 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 PAST SURGICAL HISTORY: None. ALLERGIES: No known drug allergies. CURRENT MEDICATIONS: Include Protonix 40 mg daily, naloxone 0.4 mg as needed, Senokot 2 tabs at bedtime, guaifenesin 1200 mg b.i.d., Tessalon Perles 100 mg t.i.d., albuterol updrafts as needed, Wortham 10/325 one tab every 4 hours p.r.n. HABITS: No alcohol or tobacco use. FAMILY HISTORY: Noncontributory. SOCIAL HISTORY: The patient hopes to return back home and get back to her prior level of functioning. REVIEW OF SYSTEMS: GENERAL: Does complain of some weakness and fatigue. HEENT: Denies cold, cough, or congestion. CARDIOVASCULAR: Denies chest pain. PHYSICAL EXAMINATION: HISTORY AND PHYSICAL [id number] RADHA,TRACY VITAL SIGNS: Stable, afebrile. GENERAL: A morbidly obese female who is in no acute distress, alert upon exam. HEENT: Normocephalic and atraumatic. Mucosa moist. NECK: Supple. No lymphadenopathy. LUNGS: Clear in [place]. No wheezing, rhonchi or rales. HEART: Regular rate and rhythm. No murmurs, rubs or gallops. ABDOMEN: Soft, benign and nondistended. Positive bowel sounds times 4. EXTREMITIES: No clubbing, cyanosis or edema. Her postop area appears normal and with a normal amount of swelling. NEUROLOGIC: She does have some noted weakness. LABORATORY DATA: Her white count is 7.3, H&H of 11 and 35, and platelet count is 205. Her sodium is 140, potassium 3.1, BUN and creatinine of 16 and 1.0 and blood sugar is noted to be 101. ASSESSMENT: A 74-year-old female patient admitted to rehab with a working diagnosis status post reverse total shoulder arthroplasty secondary to a fall. The patient has potential to make improvement. We instituted the following multidisciplinary therapies including, but not limited to physical, occupational, respiratory, speech, nutritional services, prosthetics and orthotics. Given her complex medical condition and risks for more complications, rehabilitation services cannot be provided at a low level of care such as jail facility. PLAN: 1. Admit to [facility] for intensive inpatient therapy to include disciplines: A. Physical therapy to improve gait, all transfer skills and bed mobility to a modified independent level. B. Occupational therapy to a modified independent level. C. Case management to assist with discharge planning and placement options. D. Nutrition to assist with nutritional needs. E. Rehabilitation nursing to assist in monitoring the patient's underlying medical condition and to assist with any type of bowel or bladder management. 2. The patient current medication and medical care will be continued. 3. Placed on standard fall precautions. 4. We will watch her blood pressures closely. I anticipate this is secondary to pain. 5. We will watch for any signs of elevated temperatures and we will treat as needed. TRANSINT:[id number] Voice Confirmation ID: [id number] DOCUMENT ID: [id number] 05/24/2019 Edited for edward CHINO. LULÚ notes whether there has been none or any medical/functional change since admission: - No change since preadmission screen. LULÚ attests patient continues to be appropriate for IRF: - Continues to be appropriate. HISTORY AND PHYSICAL [id number] RADHA,JEFF COLE MD at 1321 CC: [id number] DICTATION DATE: 05/19/19 1321 SHEET METAL ASSEMBLER AND RIVETER: 05/19/19 1359 ADM IN [place] [id number] [place] [address]
--- NOTE | 2019-05-28 13:54 | NUR ---
PATIENT IN REHAB ROOM. WORKING WITH PHYSICAL THERAPIST. DENIES ANY PAIN/DISC AT THIS TIME. PATIENT IS A MODERATE ASST FROM BED TO WHEELCHAIR
--- NOTE | 2019-05-28 15:03 | NUR ---
Nutrition Follow-up: Diet: Regular PO intake: 100% x all meals; reports that her appetite is "fairly good." Last BM: 05/28/19. WT: 250# (05/19/19), no new wt Meds and labs reviewed Continue current diet. Will continue to monitor PO intake and wt trend. RD following.
--- NOTE | 2019-05-28 19:23 | NUR ---
PATIENT RECEIVED SITTING UP IN BED. VISITOR IN ROOM. INTRODUCED MY SELF & WROTE MY NAME ON HER BOARD. VITAL SIGNS & ASSESSMENT DONE. BED LOW. ALARM ON. CALL LIGHT WITHIN REACH. WILL CONTINUE TO MOPNITOR.
[2019-05-28 19:54] VITALS: BP 188/92
--- NOTE | 2019-05-28 20:02 | NUR ---
PATIENT USED CALL LIGHT FOR ASSIST. PATIENT MOD ASSIST INTO WHEELCHAIR. PATIENT TOILETED. GOWN & BED CHANGED. PATIENT HAD VOID & BM. PATIENT RETURNED TO BED. SLING TAKEN OFF RIGHT ARM. RIGHT ARM BRIDGED ON PILLOW. CALL LIGHT WITHIN REACH. BED LOW. ALARM ON. WILL CONTINUE TO MONITOR.
--- NOTE | 2019-05-28 22:45 | NUR ---
PATIENT MEDICATIONS GIVEN DUE TO PATIENT HAVING NAUSEA. PATIENT 2ND ATTEMPT TO TAKE MEDICATIONS NOW.
--- NOTE | 2019-05-29 04:27 | NUR ---
I have reviewed this patient and I concur with the Shift Assessment completed by the Licensed Practical Nurse today this shift.
[2019-05-29 08:43] VITALS: BP 159/69
--- NOTE | 2019-05-29 09:00 | NUR ---
PT INCONTENENT OF URINE IN BED PT WENT TO BATHROOM AND URINATED THEN PT CLEANED AND BED CLEANED PT VERY SLOW TO RESPOND NOT FOLLOWING COMMAND WELL PT STATES SHE DOESNT KNOW WHAT IS WRONG PT HAD TEMP OF 100.[address] HANSON NOTIFY OF CHANGES
--- NOTE | 2019-05-29 11:15 | NUR ---
PT NOW IN ISOLATION POSITIVE FOR INFLUENZA A WILL GIVE TAMIFLU ORDERED WILL MONITER
--- NOTE | 2019-05-29 19:31 | NUR ---
RESTING IN BED WITH RESPIRATONS UNLABORED. RIGHT ARM IN SLING, IN DROPLET ISOLATION RELATED TO FLU. RESPIRATIONS UNLABORED. NO ACUTE DISTRESS NOTED. CALL LIGHT IN REACH.
[2019-05-29 21:15] VITALS: BP 168/85
--- NOTE | 2019-05-30 00:49 | NUR ---
SLEEPING WITH RESPIRATIONS UNALBORED. NO DISTRESS NOTED. CALL LIGHT IN REACH. REMAINS IN DROPLET ISOLATION.
--- NOTE | 2019-05-30 02:32 | NUR ---
HAD BED BATH EARLIER AND LINENS CHANGED. NOW RESTING WITH RESPIRATIONS UNLABORED. COUGHS AT INTERVALS. REMAINS IN DROPLET ISOLATION.
--- NOTE | 2019-05-30 04:59 | NUR ---
QUIET HOURS. RESTING IN BED. COUGHS AT INTERVALS. HAD ONE SMALL EPISODE OF LIQUID EMESIS THIS SHIFT. TWO INCONTINENT EPISODES. HAD LOW GRADE TEMP OF 99.9 THIS SHIFT. REMAINS IN DROPLET ISOLATION.
[2019-05-30 07:22] LABS: BASOPHILS 0.3 % (0-2); EOSINOPHILS 0.1 % (0-7); HEMATOCRIT 35.6 % (36.0-48.0); HEMOGLOBIN 11.7 g/dL (12-16); IMMATURE GRANULOCYTES 0.3 % (0-5); LYMPHOCYTES 10.6 % (15-50); MCH 27.4 pg (26.0-34.0); MCHC 32.9 g/dL (31.0-37.0); MEAN PLATELET VOLUME 10.3 fL (7.4-10.4); MONOCYTES 14.4 % (2-11); NEUTROPHILS 74.3 % (40-80); PLATELET COUNT 253 10x3/uL (130-400); RBC 4.27 10x6/uL (4.00-5.40); RDW 14.3 % (11.5-14.5); WBC 6.8 10x3/uL (4.8-10.8)
[2019-05-30 07:28] LABS: MCV 83.4 fL (80.0-100.0)
[2019-05-30 07:31] LABS: ANION GAP 16.1 mmol/L (8-16); CARBON DIOXIDE 23.1 mmol/L (21.0-32.0); CREATININE - SERUM 1.2 mg/dL (0.6-1.3); POTASSIUM - SERUM 3.2 mmol/L (3.5-5.1)
[2019-05-30 08:00] VITALS: BP 145/56
--- NOTE | 2019-05-30 10:00 | NUR ---
GAVE PT TAMIFLUS ORDER PT VOMITED IMMEDIATELY ON HERSELF AND ALL OVER BED PT CLEANED DRY AND TOOK TO BATHROOM AND BED STRIPPED AND CLEANED PT RETOOK TAMIFLU DOSE AND KEEP DOWN. PT PUT BACK TO BED WILL MONITER
--- NOTE | 2019-05-30 13:44 | NUR ---
CARE TEAM MEETING: PATIENT HAS A DECLINE WILL MONITOR TILL AM. TENATIVE DISCHARGE DATE IS 06/05/2019. WILL CONTINUE TO FOLLOW WITH PATIENT.
--- NOTE | 2019-05-30 14:00 | NUR ---
I have reviewed this patient and I concur with the Shift Assessment completed by the Licensed Practical Nurse today this shift.
--- NOTE | 2019-05-30 18:15 | NUR ---
PT RESTING IN BED WITH EYES OPEN CALL LIGHT IN REACH WILL MONITER
--- NOTE | 2019-05-30 19:00 | NUR ---
BEDSIDE REPORT COMPLETE. GREETED PATIENT AND INTRODUCED MYSELF. PATIENT IS LAYING IN BED RESTING AT THIS TIME. STATES THAT SHE HAS NOT VOMITED SINCE THIS MORNING, BUT SHE IS STILL FEELING BAD BUT NOT BAD YESTERDAY. CALL LIGHT IN REACH.
--- NOTE | 2019-05-30 20:47 | NUR ---
PT VOMITED HER TAMIFLU. WILL CONTACT PHARMACY TO SEE IF WE CAN CHANGE TO PO PILL RATHER THAN LIQUID. PT. HAS VERY SENSITIVE GAG REFLEX. WCPREET.
[2019-05-30 20:54] VITALS: BP 156/87
--- NOTE | 2019-05-30 23:01 | NUR ---
PT AWAKE AND SITTING UP EATING SALTINE CRACKERS AND DRINKING A COKE. PT. TOLERATED NEW TAMIFLU CAPSULE. WCTM.CALL LIGHT IN REACH.
--- NOTE | 2019-05-31 00:30 | NUR ---
PT. RESTING QUIETLY WITH EYES CLOSED. RESPIRATIONS EVEN. NO S/S OF DISTRESS. CALL LIGHT IN REACH.
--- NOTE | 2019-05-31 04:52 | NUR ---
PT. RESTING QUIETLY WITH EYES CLOSED. RESPIRATIONS EVEN. NO S/S OF DISTRESS. CALL LIGHT IN REACH.
--- NOTE | 2019-05-31 07:45 | NUR ---
PT EATING BREAKFAST, DENIES NEEDS. WCTM.
[2019-05-31 08:15] VITALS: BP 141/94
--- NOTE | 2019-05-31 09:37 | NUR ---
Nutrition Follow-up: Chart reviewed. Pt is Flu A positive, has not been feeling well. Diet: Regular PO intake: 100% x 3 meals yesterday, 0% x 3 meals (05/29/19), previously she has eaten 75-100% since admit. Last BM: 05/31/19, episode of diarrhea yesterday per nursing flow sheet. WT: 250# (05/19/19), no new wt Meds noted: tamiflu, senokot. Labs noted: Glu 112. Recommend continue current diet. RD following.
[2019-05-31 23:02] VITALS: BP 130/72
--- NOTE | 2019-06-01 00:33 | NUR ---
RECEIVED LAYING IN BED. INCISION TO RIGHT SHOULDER CDI. SEE NURSING ASSESSMENT. RATES PAIN 6-7/10. MEDS ADMINISTERED PER ORDERS WITHOUT DIFFICULTY. PRN HYDROCODONE ADMINISTERED FOR PAIN PER ORDERS. CONTINUE POC AND PROVIDE SAFE ENVIRONMENT.
--- NOTE | 2019-06-01 07:10 | NUR ---
PT RESTING IN BED. NO SIGNS OF DISTRESS. NO IV. INCISION TO RIGHT SHOULDER DRESSING CLEAN AND INTACT. DENIES ANY FURTHER NEED AT THIS TIME. CALL LIGHT IN REACH. BED LOW POSITION. NO FAMILY AT BEDSIDE AT THIS TIME. IN DROPLET ISO.
[2019-06-01 08:00] VITALS: BP 147/93
[2019-06-01 08:23] LABS: BASOPHILS 0.5 % (0-2); EOSINOPHILS 1.1 % (0-7); HEMATOCRIT 37.1 % (36.0-48.0); HEMOGLOBIN 12.1 g/dL (12-16); IMMATURE GRANULOCYTES 0.3 % (0-5); LYMPHOCYTES 40.7 % (15-50); MCH 27.5 pg (26.0-34.0); MCHC 32.6 g/dL (31.0-37.0); MCV 84.3 fL (80.0-100.0); MEAN PLATELET VOLUME 10.2 fL (7.4-10.4); MONOCYTES 13.3 % (2-11); NEUTROPHILS 44.1 % (40-80); PLATELET COUNT 251 10x3/uL (130-400); RDW 14.6 % (11.5-14.5)
[2019-06-01 08:27] LABS: WBC 3.8 10x3/uL (4.8-10.8)
[2019-06-01 09:02] LABS: ANION GAP 13.2 mmol/L (8-16); CREATININE - SERUM 1.5 mg/dL (0.6-1.3); POTASSIUM - SERUM 3.2 mmol/L (3.5-5.1)
[2019-06-01 19:56] VITALS: BP 142/65
--- NOTE | 2019-06-01 20:07 | NUR ---
AWAKE AND ALERT. RESTING IN BED. REMAINS IN DROPLET ISOLATION. RESPIRATIONS UNLABORED. NO ACUTE DISTRESS NOTED. AFEBRILE. CALL LIGHT IN REACH.
--- NOTE | 2019-06-02 00:47 | NUR ---
RESTING IN BED WITH RESPIRATIONS UNLABORED. REMAINS IN DROPLET ISOLATION. NO ACUTE DISTRESS NOTED. CALL LIGHT IN REACH.
--- NOTE | 2019-06-02 03:29 | NUR ---
SLEEPING WITH RESPIRATIONS UNLABORED. NO DISTRESS NOTED.
--- NOTE | 2019-06-02 10:41 | NUR ---
PT CONTINUES TO HAVE EXTREME DIFFICULTY TAKING MEDICATIONS. PT REFUSES TO ALLOW ME TO CRUSH MEDICATIONS FOR HER.
[2019-06-02 19:44] VITALS: BP 136/80
--- NOTE | 2019-06-02 20:19 | NUR ---
AWAKE AND ALERT. RESTING IN BED WITH RESPIRATIONS UNLABORED. SITTING IN WHEELCHAIR BUT IS READY FOR BED. ASSITED TO BED. REMAINS IN DROPLET ISOLATION REALTED TO FLU. NO ACUTE DISTRESS NOTED. CALL LIGHT IN REACH.
--- NOTE | 2019-06-03 00:43 | NUR ---
RESTING IN BED WITH EYES CLOSED AND RESPIRATIONS UNLABORED. NO ACUTE DISTRESS NOTED. REMAINS IN DROPLET ISOLATION.
--- NOTE | 2019-06-03 03:14 | NUR ---
ASSISTED TO BATHROOM AND BACK TO BED. HAD SMALL BM.
--- NOTE | 2019-06-03 04:57 | NUR ---
REMAINS IN DROPLET ISOLATION. SLEPT ON AND OFF THIS SHIFT. AMBULATES WITH STAND BY ASSIST. NO ACUTE CHANGES IN CONDITION THIS SHIFT. CALL LIGHT IN REACH.
[2019-06-03 08:15] VITALS: BP 164/82
--- NOTE | 2019-06-03 08:20 | NUR ---
PT AM MEDS ADMINISTERED. PT TOOK 35 MINUTES TO TAKE ALL MEDICATINOS THIS AM. PT ASSISTED TO BR AND PT HAD MEDIUM LOOSE BM. PT BACK IN BED AND DENIES NEEDS. WCTM.
[2019-06-03 19:32] VITALS: BP 157/80
--- NOTE | 2019-06-03 19:51 | NUR ---
AWAKE AND ALERT. RESTING IN BED WITH RESPIRAITONS UNLABORED. DROPLET ISOLATION IN PLACE. NO ACUTE DISTRESS NOTED. CALL LIGHT IN REACH. AFEBRILE.
--- NOTE | 2019-06-03 23:58 | NUR ---
RESTING IN BED WITH EYES CLOSED AND RESPIRATIONS UNLABORED. NO DISTRESS NOTED. REMAINS IN DROPLET ISOLATION.
--- NOTE | 2019-06-04 03:02 | NUR ---
ASSISTED TO BATHROOM AND BACK TO BED. PASSES SOME BRIGHT RED BLOOD INTO TOILET WITH SMALL BM. SHE STATES SHE HAS HEMORRHOIDS. MESSAGE LEFT FOR DR HANSON ON ROUNDING SHEET. MEDICATED FOR C/O PAIN IN RIGHT SHOULDER. SEE MAR. WILL MONITOR FOR EFFECTIVENESS.
--- NOTE | 2019-06-04 04:55 | NUR ---
RESTING IN BED. NO ACUTE CHANGES IN CONDITION THIS SHIFT. NO DISTRESS NOTED.
[2019-06-04 06:35] LABS: BASOPHILS 0.4 % (0-2); EOSINOPHILS 0.9 % (0-7); HEMOGLOBIN 12.3 g/dL (12-16); IMMATURE GRANULOCYTES 0.1 % (0-5); LYMPHOCYTES 31.4 % (15-50); MCH 27.1 pg (26.0-34.0); MCHC 32.4 g/dL (31.0-37.0); MCV 83.7 fL (80.0-100.0); MEAN PLATELET VOLUME 10.5 fL (7.4-10.4); MONOCYTES 10.4 % (2-11); NEUTROPHILS 56.8 % (40-80); PLATELET COUNT 222 10x3/uL (130-400); RBC 4.54 10x6/uL (4.00-5.40); RDW 14.2 % (11.5-14.5); WBC 7.4 10x3/uL (4.8-10.8)
[2019-06-04 06:43] LABS: ANION GAP 13.7 mmol/L (8-16); CALCIUM 8.1 mg/dL (8.5-10.1); CARBON DIOXIDE 24.5 mmol/L (21.0-32.0); CREATININE - SERUM 1.1 mg/dL (0.6-1.3); POTASSIUM - SERUM 4.2 mmol/L (3.5-5.1)
[2019-06-04 08:00] VITALS: BP 186/86
--- NOTE | 2019-06-04 08:00 | NUR ---
PATIENT IS ALERT/ORIENT. HELPED INTO WHEELCHAIR TO USE THE BATHROOM. MODERATE ASST FROM BED INTO WHEELCHAIR. MIN ASST FROM WHEELCHAIR ONTO TOILET. PATIENT REMAINS SITTING UP FOR BREAKFAST. CALL LIGHT WITHIN REACH. WILL CONTINUE WITH PLAN OF CARE.
--- NOTE | 2019-06-04 10:00 | NUR ---
THIS NURSE TALKED WITH INFECTION CONTROL. PATIENT TAKEN OUT OF ISOLATION.
[2019-06-04 10:27] VITALS: BP 186/86
--- NOTE | 2019-06-04 14:10 | NUR ---
PATIENT IN REHAB ROOM. WORKING WITH THERAPIST. DENIES ANY PAIN/DISC AT THIS TIME.
--- NOTE | 2019-06-04 19:30 | NUR ---
GREETED PATIENT AND INTRODUCED MYSELF HER NURSE. ASSISTED PT. TO BATHROOM USING ONE PERSON ASSIST. BACK TO BED AND REPOSITIONED FOR COMFORT. CALL LIGHT IN REACH. RESPIRATIONS EVEN. NO S/S OF DISTRESS.
[2019-06-04 21:10] VITALS: BP 187/93
--- NOTE | 2019-06-04 21:30 | NUR ---
PT. REFUSED ALL MEDICATIONS THIS EVENING. STATED THAT SHE DIDNT WANT TO THROW IT UP. PT WAS AFRAID THAT SHE WOULD GET IN TROUBLE IF NOT TAKING MEDICATION EXPLAINED THAT IT WAS HER RIGHT TO REFUSE MEDICATION AT ANYTIME BUT THAT IT WOULD HELP HER GET BETTER IF SHE WOULD TAKE.
--- NOTE | 2019-06-05 02:09 | NUR ---
PT. AWAKE AND LAYING IN BED. RESPIRAITONS EVEN. NO S/S OF DISTRESS. DENIES ANY NEEDS AT THIS TIME. CALL LIGHT IN REACH.
--- NOTE | 2019-06-05 04:31 | NUR ---
PT. RESTING QUIETLY WITH EYES CLOSED. RESPIRATIONS EVEN. NO S/S OF DISTRESS. CALL LIGHT IN REACH.
--- NOTE | 2019-06-05 05:06 | NUR ---
ADMINISTERED PRN PAIN MEDICATION AND PROTONIX. PT. VOMITED BOTH UP. WCTM.
--- NOTE | 2019-06-05 05:47 | NUR ---
PT. LAYING IN BED AWAKE. RESPIRATIONS EVEN. NO S/S OF DISTRESS. CALL LIGHT IN REACH. DENIES ANY NEEDS AT THIS TIME.
[2019-06-05 08:00] VITALS: BP 156/91
--- NOTE | 2019-06-05 10:41 | NUR ---
PATIENT CONTINUES TO REFUSE MEDICATIONS DUE TO N & V. STATES THAT FOOD DOES NOT GIVE HER NAUSEAA BUT MEDICATIONS DO. STATED,"I DON'T LIKE TO TAKE MEDICINE." ZOFRAN GIVEN PRIOR TO SECOND ATTEMPT TO ADMIN MEDS BUT PT. CONT TO REFUSE. STATED, "I MIGHT TAKE THEM TONIGHT." PT. DENIES PAIN AT THIS TIME. CALL LIGHT AT HAND, INSTRUCTED TO CALL WITH NEEDS.
--- NOTE | 2019-06-05 13:04 | NUR ---
Nutrition Follow-up: Diet: Regular PO intake: ~24% average x last 6 meals; she reports that her appetite hasn't been good. She has been ordering Ensure and had several at bedside. Last BM: 06/05/19. WT: 250# (05/19/19), no new wt Meds and labs reviewed. Encouraged PO intake and Encouraged patient to sip on Ensure when she can. Encouraged patient to order shelf stable foods on her trays that she can reserve from meal time and snack on throughout the day. Recommend continue current diet. RD following.
[2019-06-05 20:00] VITALS: BP 160/88
--- NOTE | 2019-06-05 20:00 | NUR ---
PATIENT RECEIVED SITTING UP IN BED. ASSESSMENT & VITAL SIGNS DONE. NO C/O PAIN OR DISTRESS. BED LOW. CALL LIGHT WITHIN REACH. ALARM ON. WILL CONTINUE TO MONITOR.
--- NOTE | 2019-06-06 02:01 | NUR ---
PATIENT UP IN CHAIR AT BEDSIDE. CALL LIGHT WITHIN REACH. WILL CONTINUE TO MONITOR.
--- NOTE | 2019-06-06 02:17 | NUR ---
I have reviewed this patient and I concur with the Shift Assessment completed by the Licensed Practical Nurse today this shift.
[2019-06-06 07:16] LABS: BASOPHILS 0.1 % (0-2); EOSINOPHILS 0.9 % (0-7); HEMATOCRIT 36.1 % (36.0-48.0); HEMOGLOBIN 11.7 g/dL (12-16); IMMATURE GRANULOCYTES 0.1 % (0-5); LYMPHOCYTES 22.5 % (15-50); MCHC 32.4 g/dL (31.0-37.0); MCV 83.4 fL (80.0-100.0); MEAN PLATELET VOLUME 10.8 fL (7.4-10.4); NEUTROPHILS 63.4 % (40-80); PLATELET COUNT 229 10x3/uL (130-400); RBC 4.33 10x6/uL (4.00-5.40); RDW 14.4 % (11.5-14.5); WBC 7.8 10x3/uL (4.8-10.8)
[2019-06-06 07:26] LABS: CALCIUM 8.2 mg/dL (8.5-10.1); CARBON DIOXIDE 24.7 mmol/L (21.0-32.0); CREATININE - SERUM 0.9 mg/dL (0.6-1.3); POTASSIUM - SERUM 3.7 mmol/L (3.5-5.1)
[2019-06-06 08:00] VITALS: BP 154/92
--- NOTE | 2019-06-06 08:20 | NUR ---
PATIENT IS ALERT/ORIENT. WALKING IN HALLWAY WITH THERAPY THIS AM. WILL CONTINUE WITH PLAN OF CARE
--- NOTE | 2019-06-06 10:13 | NUR ---
DR Maggy HANSON INTO SEE PATIENT. NEW ORDERS RECEIVED TO DISCONTINUE MULTIPLE MEDICATIONS
--- NOTE | 2019-06-06 16:31 | NUR ---
CARE TEAM MEETING: PATIENT DOING WELL IN THERAPY . TENATIVE DISCHARGE DATE IS 06/08/2019. SHE WILL DISCHARGE WITH HOME HEALTH . WILL CONTINUE TO FOLLOW WITH PATIENT.
--- NOTE | 2019-06-06 17:23 | NUR ---
PATIENT RESTING IN BED AFTER THERAPY. MODERATE AMOUNT OF HELP WITH AMBULATION FROM WHEELCHAIR INTO BED.
--- NOTE | 2019-06-06 19:05 | NUR ---
GREETED PATIENT AND BEDSIDE REPORT COMPLETE WITH OFF GOING NURSE. PATIENT RESTING QUIETLY IN BED AND DENIES ANY NEEDS AT THIS TIME. BED ALARM ON AND WORKING PROPERLY. CALL LIGHT IN REACH.
[2019-06-06 19:36] VITALS: BP 153/91
--- NOTE | 2019-06-07 00:24 | NUR ---
PT. RESTING QUIETLY WITH EYES CLOSED. RESPIRATIONS EVEN. NO S/S OF DISTRESS. CALL LIGHT IN REACH.
--- NOTE | 2019-06-07 04:31 | NUR ---
PT. LAYING IN BED AWAKE. DENIES ANY NEEDS AT THIS TIME. CALL LIGHT IN REACH.
--- NOTE | 2019-06-07 06:38 | NUR ---
PT. RESTING QUIETLY WITH EYES CLOSED. RESPIRATIONS EVEN NO S/S OF DISTRESS. CALL LIGHT IN REACH.
[2019-06-07 08:07] VITALS: BP 163/86
[2019-06-07] MEDS ORDERED: COZAAR50 MG PO (08:58)
--- NOTE | 2019-06-07 12:17 | NUR ---
PATIENT DISCHARGING HOME TODAY WITH FAMILY. PATIENT DECLINES HOME HEALTH AT THIS TIME. NO DME NEEDED AT THIS TIME. AT THIS TIME PATIENT HAS NO PCP BUT SHE IS TO CALL DR. REAVES OFFICE TO GET ESTABLISHED AND AT THAT TIME HOME HEALTH IF NEEDED CAN BE ARRANGED. DR. FUNK 06/14/2019 @ 10:20. [facility] FORM AND PATIENT CHOICE FORM FOR HOME HEALTH (DECLINING HOME HEALTH ) SIGNED, COPIES FILED IN CHART AND ONE GIVEN TO PATIENT. DISCHARGE INSTRUCTIONS FAXED TO DR. REAVES OFFICE AND REVIEWED WITH PATIENT.
--- NOTE | 2019-06-07 16:55 | NUR ---
PT DISCHARGE INSTRUCTIONS REV'D AND PT STATES UNDERSTANDING. PT DISCHARGING HOME WITH SON AT THIS TIME. PT ESCORTED OUT VIA WHEELCHAIR BY HOSPITAL STAFF.
== END 2019-06-07 16:56 | disposition home or self-care (01) | DRG 561 ==
LOC: D.REHAB 17:11
PROVIDERS: ADMIT Emergency Medicine; ATTEND Emergency Medicine
DX: S42.201D Unspecified fracture of upper end of right humerus, subsequent encounter for fracture with routine healing (principal); W19.XXXD Unspecified fall, subsequent encounter; E66.01 Morbid (severe) obesity due to excess calories; R09.02 Hypoxemia; E87.6 Hypokalemia; R05 Cough; G89.18 Other acute postprocedural pain; R06.00 Dyspnea, unspecified; R50.9 Fever, unspecified; S43.004D Unspecified dislocation of right shoulder joint, subsequent encounter